=== PATIENT | female | born 1980 | race Caucasian/White ===

== ENCOUNTER 2017-08-15 11:34 | Emergency (ER) | payer BC ==
[2017-08-15] MEDS ORDERED: ONDANSETRON HCL 4 MG/2 ML SOL IV ONE (12:03)
[2017-08-15 12:12] LABS: BASOPHILS % (AUTO) 1 % (0-3); EOSINOPHILS % (AUTO) 1 % (0-9); HEMATOCRIT 43 % (35-47); MEAN CORPUSCULAR HGB CONC 35.7 gm/dl (32.0-36.0); MEAN CORPUSCULAR VOLUME 87 fL (81-99); MONOCYTES % (AUTO) 4.3 % (0-12); NEUTROPHILS % (AUTO) 62.5 % (37-80)
[2017-08-15 12:29] LABS: ALBUMIN 3.7 gm/dl (3.4-5.0); CALCIUM 8.5 mg/dl (8.5-10.1); POTASSIUM 3.6 mMol/L (3.5-5.1)
[2017-08-15 13:52] VITALS: RESP 16; O2SAT 98
[2017-08-15 13:59] VITALS: BP 135/91; PULSE 92; TEMP 98.6
== END 2017-08-15 13:27 | disposition home or self-care (01) ==
LOC: ED 11:34
DX: R10.11 Right upper quadrant pain (principal); R74.0 Nonspecific elevation of levels of transaminase and lactic acid dehydrogenase [LDH]; R17 Unspecified jaundice; R11.0 Nausea
CPT/HCPCS: 80053; 82150; 85025; 99282